=== PATIENT | female | born 1960 | race African-American/Black ===

== ENCOUNTER 2017-05-15 10:10 | Emergency (ER) | payer OTHER ==
[~2017-05-15] VITALS: Ht 180.3 cm; Wt 108.4 kg
[~2017-05-15 10:10] MED LIST: ASCORBIC ACID100 MG PO; FLONASE16 G1 BOTH NARES; IRON160 M1 PO; ULTRAM50 MG PO; VICODIN 5-3001 EACH PO; VITAMIN D-32000 UNI2 PO; ZOVIRAX800 M1 PO
[2017-05-15 10:58] LABS: HEMATOCRIT 41.1 % (36.0-46.0); MCH 29.2 PG (29.0-34.0); MCHC 32.1 G/DL (30.0-36.0); MCV 90.9 FL (83-99); MEAN PLAT.VOLUME 10.5 uM^3 (9.5-12.4); PLATELET COUNT 280 K/uL (156-360); RBC DIS.WIDTH-CV 13.2 % (11.8-14.6); RBC DIS.WIDTH-SD 44.6 % (39-53); RED BLOOD COUNT 4.52 M/uL (3.80-5.20); WHITE BLOOD COUNT 6.7 K/uL (4.1-10.2)
[2017-05-15 11:11] LABS: CHLORIDE 110 mEq/L (99-109); SODIUM 144 mEq/L (136-147)
[2017-05-15 11:12] LABS: GLUCOSE 93 mg/dL (70-99)
[2017-05-15 11:14] LABS: ANION GAP 9 MEQ/L (2-14)
[2017-05-15 11:16] LABS: GFR ESTIMATE (CALCULATED) > 59 mL/min/
[2017-05-15 11:17] LABS: UREA NITROGEN (BUN) 11 mg/dL (9-23)
[2017-05-15 11:31] LABS: TROP-I INTERPRETATION NEGATIVE; TROPONIN-I < 0.01 ng/mL (0.0-0.30)
[2017-05-15] MEDS ORDERED: ERGOCALCIF50000 UNIT PO (12:07)
[2017-05-15] MEDS ORDERED: ASCORBIC ACID100 MG PO (12:08)
[2017-05-15] MEDS ORDERED: HYDROCHLOROTH12.5 M3 PO (12:08)
[2017-05-15] MEDS ORDERED: FOLBIC RF TABL1 EACH PO (12:08)
[2017-05-15 12:12] LABS: ADD MIUA? YES; BILIRUBIN NEGATIVE; BLOOD SMALL; COLOR YELLOW ((YELLOW)); GLUCOSE (STRIP) NEGATIVE; KETONES NEGATIVE; LEUKOCYTES TRACE; NITRITE NEGATIVE; PROTEIN (STRIP) NEGATIVE; SPECIFIC GRAVITY 1.014 (1.000-1.030); UROBILINOGEN 0.2 MG/DL (0.2-1.0)
[2017-05-15 12:16] LABS: BACTERIA NONE SEEN /HPF; EPITHELIAL CELLS RARE /HPF; MUCUS TRACE /LPF; RED BLOOD CELLS 0-5 /HPF (0-5); WHITE BLOOD CELLS 0-5 /HPF (0-5)
[2017-05-15] MEDS ORDERED: MOTRIN600 MG PO (12:19)
[2017-05-15 12:30] VITALS: BP 131/77
== END 2017-05-15 12:31 | disposition home or self-care (01) ==
LOC: EME 10:10
PROVIDERS: Physician Assistant Medical
DX: B34.9 Viral infection, unspecified (principal); D86.9 Sarcoidosis, unspecified; I10 Essential (primary) hypertension
CPT/HCPCS: 71020; 80048; 81003; 84484; 85027; 93005; 99281; 99285